=== PATIENT | male | born 1975 | race Caucasian/White ===

== ENCOUNTER → 2024-02-16 11:17 | Outpatient (BNVA) | payer BC, SELFPAY | PROVIDERS: PCP Family Medicine Adult Medicine; Visit Provider Family Medicine Adult Medicine | DX: M54.50 Low back pain, unspecified (principal); R10.10 Upper abdominal pain, unspecified; F41.9 Anxiety disorder, unspecified; F32.A Depression, unspecified | CPT/HCPCS: 80053; 82150; 83690; 85025 ==